=== PATIENT | female | born 1980 | race Caucasian/White ===

== ENCOUNTER 2023-05-20 19:58 | Emergency (ER) | payer SELFPAY ==
[2023-05-20 21:40] LABS: Bilirubin Neg (Negative); Blood, Urine 150 (Negative); Clarity Clear (Clear); Glucose, Urine (Dipstick) >=1000 mg/dL (Negative); Ketone, Urine Negative (Negative); Leukocyte Negative (Negative); Nitrite Negative (Negative); Protein, Urine (Dipstick) Negative (Neg-Trace); Urobilinogen Normal mg/dL (Less than 2)
[2023-05-20 21:46] LABS: Pregnancy Test - Urine (BHCG) Negative (Negative); Pregu Control Background? CLEAR/WHITE (CLR/WHITE); Pregu Control Bar Appear? YES (CONTROL BAR)
[2023-05-20 21:57] LABS: CAUTI Indications for Culture Pelvic or flank pain; RBC/HPF 0-3 HPF (0-3); Squamous Epithelial 0-3 HPF (0-3); WBC/HPF 0-3 HPF (0-3)
[2023-05-20 21:58] LABS: Bacteria/HPF None Seen HPF (None Seen)
[2023-05-20 21:59] LABS: Urine Culture Reflex No No
[2023-05-20 22:10] LABS: SARS-CoV-2 NAA Rapid Test Not Detected (NotDetected)
[2023-05-20 22:34] LABS: #Basophils 0.1 10x3/uL (0.0-0.2); #Eosinphils 0.6 10x3/uL (0.0-0.5); #Monocytes 0.6 10x3/uL (0.0-1.1); #Neutrophils 5.3 10x3/uL (1.5-8.4); %Basophils 0.6 % (0.0-2.0); %Eosinophils 5.8 % (0.0-6.0); %Lymphocytes 36.3 % (18.0-47.0); %Monocytes 6.1 % (0.0-10.0); %Neutrophils 51.1 % (40.0-75.0); Hematocrit 42.2 % (34.9-44.5); Hemoglobin 14.1 g/dL (12.0-15.5); Mean Corpuscular HGB CONC 33.4 g/dL (32.0-36.0); Mean Corpuscular Hemoglobin 28.7 pg (27.0-33.0); Mean Corpuscular Volume 85.9 fl (81.6-98.3); Platelet Count 293 10x3/uL (150-450); Red Blood Cell (RBC) Count 4.91 10x6/uL (3.90-5.03); White Blood Cell (WBC) Count 10.4 10x3/uL (3.5-10.5)
[2023-05-20 22:45] LABS: ALT (SGPT) 15 U/L (8-55); AST (SGOT) 10 U/L (5-34); Albumin 3.6 g/dL (3.5-5.0); Alkaline Phosphatase 41 U/L (40-110); Anion Gap 9 mmol/L (10-20); BUN (Urea Nitrogen) 11 mg/dL (7.0-18.7); Bilirubin, Total 0.2 mg/dL (0.2-1.2); Calc. Creatinine Clearance 0 mL/min (70-130); Calcium 8.7 mg/dL (7.8-10.44); Carbon Dioxide 29 mmol/L (22-29); Chloride 101 mmol/L (98-107); Estimated GFR 108; Globulin 2.2 g/dL (2.4-3.5); Glucose 280 mg/dL (70-105); Protein, Total 5.8 g/dL (6.0-8.3); Sodium 135 mmol/L (136-145)
== END 2023-05-20 23:00 | disposition home or self-care (01) ==
LOC: CSHERS 19:58
DX: R11.2 Nausea with vomiting, unspecified (principal); R19.7 Diarrhea, unspecified; J45.909 Unspecified asthma, uncomplicated; Z20.822 Contact with and (suspected) exposure to COVID-19
CPT/HCPCS: 36416; 80053; 81001; 81025; 82010; 85025; 96360

== ENCOUNTER 2023-06-15 12:22 | Emergency (ER) | payer SELFPAY ==
[2023-06-15] MEDS ORDERED: Ipratropium/Albuterol 3 ML NEB ONE (12:43)
[2023-06-15] MEDS ORDERED: predniSONE 20 MG TAB ONE (13:07)
[2023-06-15] MEDS ORDERED: Dexamethasone 10 MG/ML VIAL ONE (13:44)
[2023-06-15] MEDS ORDERED: Ventolin HFA Inhaler 60 PUFF INHALER ONE (14:10)
== END 2023-06-15 15:04 | disposition home or self-care (01) ==
LOC: CSHERS 12:22
DX: J45.901 Unspecified asthma with (acute) exacerbation (principal)
CPT/HCPCS: J1100; J7512; J7620

== ENCOUNTER 2023-10-03 12:56 | Emergency (ER) | payer OTHER, SELFPAY ==
[2023-10-03] MEDS ORDERED: Ipratropium/Albuterol 3 ML NEB ONE ×2 (13:12→14:10)
[2023-10-03] MEDS ORDERED: predniSONE 20 MG TAB ONE (13:41)
== END 2023-10-03 14:43 | disposition home or self-care (01) ==
LOC: CSHERS 12:56
DX: J45.901 Unspecified asthma with (acute) exacerbation (principal)
CPT/HCPCS: 94640; 94760; J7512; J7620

== ENCOUNTER 2023-11-01 14:53 | Emergency (ER) | payer OTHER | END 2023-11-01 17:31 | disposition home or self-care (01) | LOC: CSHERS 14:53 | DX: N64.4 Mastodynia (principal); Z87.891 Personal history of nicotine dependence ==

== ENCOUNTER 2024-02-06 11:32 | Outpatient (CLI) | payer OTHER | END 2024-02-06 11:33 | disposition home or self-care (01) | LOC: CSHRAD 11:32 | PROVIDERS: ATTEND Student in an Organized Health Care Education/Training Program | DX: M54.6 Pain in thoracic spine (principal); M25.78 Osteophyte, vertebrae | CPT/HCPCS: 72072 ==

== ENCOUNTER 2024-03-02 16:18 | Inpatient (IN) | payer OTHER ==
[2024-03-02] MEDS ORDERED: methylPREDNISolone Sod Succ/PF 125 MG/2 ML VIAL ONE (16:58)
[2024-03-02] MEDS ORDERED: Magnesium 2 GM/50 ML BAG (IN WATER) ONE (17:36)
[2024-03-02] MEDS ORDERED: Albuterol 2.5 MG (3 mL) NEB ONE (17:37)
[2024-03-02 17:59] LABS: #Basophils 0.13 10x3/uL (0.0-0.2); #Eosinphils 2.17 10x3/uL (0.0-0.5); #Monocytes 0.78 10x3/uL (0.0-1.1); #Neutrophils 5.86 10x3/uL (1.5-8.4); %Basophils 1.1 % (0.0-2.0); %Eosinophils 17.8 % (0.0-6.0); %Lymphocytes 26.5 % (18.0-47.0); %Monocytes 6.4 % (0.0-10.0); %Neutrophils 47.9 % (40.0-75.0); Hematocrit 47.1 % (34.9-44.5); Hemoglobin 16.2 g/dL (12.0-15.5); Mean Corpuscular HGB CONC 34.4 g/dL (32.0-36.0); Mean Corpuscular Hemoglobin 29.1 pg (27.0-33.0); Mean Corpuscular Volume 84.7 fL (81.6-98.3); Mean Platelet Volume 10.1 fL (7.4-10.4); Platelet Count 340 10x3/uL (150-450); RBC Distribution Width 12.7 % (11.5-14.5); Red Blood Cell (RBC) Count 5.56 10x6/uL (3.90-5.03); White Blood Cell (WBC) Count 12.2 10x3/uL (3.5-10.5)
[2024-03-02 18:12] LABS: ALT (SGPT) 19 U/L (8-55); AST (SGOT) 16 U/L (5-34); Albumin 3.9 g/dL (3.5-5.0); Alkaline Phosphatase 53 U/L (40-110); Anion Gap 17 mmol/L (10-20); BUN (Urea Nitrogen) 12 mg/dL (7.0-18.7); Bilirubin, Total 0.4 mg/dL (0.2-1.2); Calc. Creatinine Clearance 0 mL/min (70-130); Calcium 9.7 mg/dL (7.8-10.44); Carbon Dioxide 23 mmol/L (22-29); Chloride 100 mmol/L (98-107); Estimated GFR 88; Globulin 3.7 g/dL (2.4-3.5); Glucose 261 mg/dL (70-105); Potassium 4.2 mmol/L (3.5-5.1); Protein, Total 7.6 g/dL (6.0-8.3); Sodium 136 mmol/L (136-145)
[2024-03-02] MEDS ORDERED: Azithromycin 500 MG VIAL ONE (19:23)
[2024-03-02] MEDS ORDERED: Acetaminophen 325 MG TAB PO PRN (19:30)
[2024-03-02] MEDS ORDERED: Communication Order-Pharmacy FS PRN (19:32)
[2024-03-02 19:57] LABS: Magnesium 1.7 mg/dL (1.6-2.6); Phosphorus 3.6 mg/dL (2.3-4.7)
[2024-03-02] MEDS ORDERED: Dextrose 5% in Water 1,000 ML IV PRN (21:04)
[2024-03-02] MEDS ORDERED: Glucagon 1 MG/ML KIT IM PRN (21:04)
[2024-03-02] MEDS ORDERED: Dextrose 50% Abboject 50 ML SYRINGE SLOW IVP PRN (21:04)
[2024-03-02 21:35] LABS: Lactic Acid 2.5 mmol/L (0.5-2.2)
[2024-03-02 23:41] VITALS: BMI 35.1
[2024-03-02] MEDS: Montelukast Sodium 10 mg Tablet PO SCH (23:49)
[2024-03-02] MEDS: Lactated Ringer's 1,000 ML IV SCH (23:50)
[2024-03-02] MEDS: Famotidine/PF 20 mg/2ml Vial SLOW IVP SCH (23:50)
[2024-03-02] MEDS: methylPREDNISolone Sod Succ 40 MG VIAL IVP SCH (23:50)
[2024-03-03] MEDS: Ipratropium/Albuterol 3 ML NEB NEB SCH (00:10)
[2024-03-03 01:44] LABS: Influenza A by NAA Not Detected (NotDetected); Influenza B by NAA Not Detected (NotDetected); RSV by NAA Not Detected (NotDetected); SARS-CoV-2 NAA Rapid Test Not Detected (NotDetected)
[2024-03-03 02:03] LABS: Pregnancy Test - Urine (BHCG) Negative (Negative); Pregu Control Background? CLEAR/WHITE (CLR/WHITE); Pregu Control Bar Appear? YES (CONTROL BAR); Specific Gravity 1.015 (1.002-1.036)
[2024-03-03] MEDS: Ipratropium/Albuterol 3 ML NEB NEB PRN (04:05)
[2024-03-03 04:49] LABS: #Basophils 0.03 10x3/uL (0.0-0.2); #Monocytes 0.08 10x3/uL (0.0-1.1); #Neutrophils 13.95 10x3/uL (1.5-8.4); %Basophils 0.2 % (0.0-2.0); %Lymphocytes 7.5 % (18.0-47.0); %Monocytes 0.5 % (0.0-10.0); %Neutrophils 91.3 % (40.0-75.0); Hematocrit 41.3 % (34.9-44.5); Hemoglobin 13.9 g/dL (12.0-15.5); Mean Corpuscular HGB CONC 33.7 g/dL (32.0-36.0); Mean Corpuscular Hemoglobin 28.6 pg (27.0-33.0); Mean Platelet Volume 10.2 fL (7.4-10.4); Platelet Count 311 10x3/uL (150-450); RBC Distribution Width 12.9 % (11.5-14.5); Red Blood Cell (RBC) Count 4.86 10x6/uL (3.90-5.03); White Blood Cell (WBC) Count 15.3 10x3/uL (3.5-10.5)
[2024-03-03 05:02] LABS: Anion Gap 17 mmol/L (10-20); BUN (Urea Nitrogen) 9 mg/dL (7.0-18.7); Calc. Creatinine Clearance 119 mL/min (70-130); Calcium 8.6 mg/dL (7.8-10.44); Carbon Dioxide 18 mmol/L (22-29); Chloride 103 mmol/L (98-107); Estimated GFR 91; Glucose 391 mg/dL (70-105); Sodium 134 mmol/L (136-145)
[2024-03-03] MEDS: Mometasone/Formoterol 200/5 60 PUFF INH SCH (07:03)
[2024-03-03] MEDS: HumaLOG 300 UNITS/3 ML VIAL SC PRN (07:03)
[2024-03-03] MEDS: Famotidine/PF 20 mg/2ml Vial SLOW IVP SCH (09:16)
[2024-03-03] MEDS: Enoxaparin 40 MG (0.4 mL) SYRINGE SC SCH (09:16)
[2024-03-03] MEDS: Benzonatate 100 MG CAP PO SCH ×2 (15:22→21:21)
[2024-03-03] MEDS: Loperamide HCl 2 MG CAP PO SCH (18:44)
[2024-03-03] MEDS: Azithromycin 500 MG in Sodium Chloride 0.9% 250 ML 250 ML IVPB SCH (21:21)
[2024-03-03] MEDS: guaiFENesin/Codeine Phosphate 100 mg/10 mg 5 ml UD Cup PO PRN (21:21)
[2024-03-03] MEDS: Montelukast Sodium 10 mg Tablet PO SCH (21:22)
[2024-03-04] MEDS: HumaLOG 300 UNITS/3 ML VIAL SC PRN (02:32)
[2024-03-04 04:50] LABS: #Basophils 0.02 10x3/uL (0.0-0.2); #Monocytes 0.47 10x3/uL (0.0-1.1); %Basophils 0.1 % (0.0-2.0); %Lymphocytes 7.9 % (18.0-47.0); %Monocytes 2.7 % (0.0-10.0); %Neutrophils 88.3 % (40.0-75.0); Hematocrit 39.4 % (34.9-44.5); Hemoglobin 13.4 g/dL (12.0-15.5); Mean Corpuscular Hemoglobin 28.8 pg (27.0-33.0); Mean Corpuscular Volume 84.7 fL (81.6-98.3); Mean Platelet Volume 10.5 fL (7.4-10.4); Platelet Count 300 10x3/uL (150-450); RBC Distribution Width 13.1 % (11.5-14.5); Red Blood Cell (RBC) Count 4.65 10x6/uL (3.90-5.03); White Blood Cell (WBC) Count 17.6 10x3/uL (3.5-10.5)
[2024-03-04 05:05] LABS: Anion Gap 15 mmol/L (10-20); BUN (Urea Nitrogen) 10 mg/dL (7.0-18.7); Calc. Creatinine Clearance 137 mL/min (70-130); Calcium 8.7 mg/dL (7.8-10.44); Carbon Dioxide 19 mmol/L (22-29); Chloride 105 mmol/L (98-107); Estimated GFR 108; Glucose 312 mg/dL (70-105); Potassium 3.8 mmol/L (3.5-5.1); Sodium 135 mmol/L (136-145)
[2024-03-04] MEDS: Lantus 1000 UNITS/10 ML VIAL SC SCH ×2 (13:04→21:08)
[2024-03-04] MEDS: traMADol HCl 50 MG TAB PO PRN (21:09)
[2024-03-05 03:51] LABS: #Basophils 0.02 10x3/uL (0.0-0.2); #Neutrophils 13.69 10x3/uL (1.5-8.4); %Basophils 0.1 % (0.0-2.0); %Lymphocytes 6.5 % (18.0-47.0); %Monocytes 3.3 % (0.0-10.0); %Neutrophils 89.3 % (40.0-75.0); Hematocrit 39.1 % (34.9-44.5); Hemoglobin 13.3 g/dL (12.0-15.5); Mean Corpuscular Hemoglobin 28.8 pg (27.0-33.0); Mean Corpuscular Volume 84.6 fL (81.6-98.3); Mean Platelet Volume 10.2 fL (7.4-10.4); Platelet Count 305 10x3/uL (150-450); Red Blood Cell (RBC) Count 4.62 10x6/uL (3.90-5.03); White Blood Cell (WBC) Count 15.3 10x3/uL (3.5-10.5)
[2024-03-05 03:53] LABS: Anion Gap 15 mmol/L (10-20); BUN (Urea Nitrogen) 15 mg/dL (7.0-18.7); Calc. Creatinine Clearance 133 mL/min (70-130); Calcium 9.1 mg/dL (7.8-10.44); Carbon Dioxide 19 mmol/L (22-29); Chloride 103 mmol/L (98-107); Estimated GFR 104; Glucose 346 mg/dL (70-105); Potassium 4.3 mmol/L (3.5-5.1); Sodium 133 mmol/L (136-145)
[2024-03-05] MEDS: Lantus 1000 UNITS/10 ML VIAL SC SCH (10:15)
[2024-03-05 12:46] LABS: Hemoglobin A1c 12.5 % (4.0-6.0)
[2024-03-06] MEDS: hydrALAZINE 20 MG/ML VIAL SLOW IVP PRN (05:55)
[2024-03-06 07:45] VITALS: BP 163/79; TEMP 98
[2024-03-06] MEDS: Lisinopril 2.5 MG TAB PO SCH (09:12)
[2024-03-06] MEDS: metFORMIN 500 MG TAB PO SCH (09:12)
== END 2024-03-06 10:20 | disposition home or self-care (01) | DRG 871 ==
LOC: SUATTDRO 16:18 → CSHERS 16:18 → CSHTELE 19:10
PROVIDERS: ADMIT Family Medicine; ATTEND Internal Medicine
DX: A41.9 Sepsis, unspecified organism (principal); J96.01 Acute respiratory failure with hypoxia; J44.1 Chronic obstructive pulmonary disease with (acute) exacerbation; E11.65 Type 2 diabetes mellitus with hyperglycemia; J45.909 Unspecified asthma, uncomplicated; F98.8 Other specified behavioral and emotional disorders with onset usually occurring in childhood and adolescence; R73.9 Hyperglycemia, unspecified; F41.9 Anxiety disorder, unspecified; Z87.81 Personal history of (healed) traumatic fracture; Z87.891 Personal history of nicotine dependence
CPT/HCPCS: 0241U; 36415; 36416; 71045; 80048; 80053; 81025; 83036; 83605; 83735; 84100; 84145; 85025; 87040; 93005; 94640; 94644; 94664; 94760; 94762; 96374; 96375; J0360; J0456; J1650; J1815; J2920; J2930; J3475; J7050; J7120; J7611; J7620; S0028

== ENCOUNTER 2024-04-23 09:07 | Outpatient (CLI) | payer OTHER | END 2024-04-23 09:08 | disposition home or self-care (01) | LOC: CSHMAMMO 09:07 | PROVIDERS: ATTEND Student in an Organized Health Care Education/Training Program | DX: Z12.31 Encounter for screening mammogram for malignant neoplasm of breast (principal); Z80.3 Family history of malignant neoplasm of breast | CPT/HCPCS: 77063; 77067 ==